=== PATIENT | male | born 1970 | race Caucasian/White ===

== ENCOUNTER 2016-10-28 00:05 | Emergency (ER) | payer SELFPAY ==
[~2016-10-28] VITALS: Ht 175.3 cm; Wt 75.0 kg
[2016-10-28] MEDS ORDERED: ALBUTEROL/IPRATROPIUM 3MG-0.5MG/3ML (DUONEB) NEB VIAL INH ONE ×3 (00:14→01:05)
[2016-10-28] MEDS ORDERED: predniSONE 20 MG (DELTASONE) TABLET PO ONE (00:15)
[2016-10-28] MEDS ORDERED: ALBUTEROL 0.083% NEB SOLUTION 2.5 MG/3 ML VIAL INH ONE (00:17)
[2016-10-28] MEDS ORDERED: ALBUTEROL 0.5% NEB SOLUTION 2.5 MG/0.5 ML VIAL INH ONE (00:20)
[2016-10-28 01:43] VITALS: BP 129/83
== END 2016-10-28 01:40 | disposition home or self-care (01) ==
LOC: ED 00:14
DX: J44.9 Chronic obstructive pulmonary disease, unspecified (principal)
CPT/HCPCS: 94640; 99282; J7613; 99283